=== PATIENT | female | born 1945 | race Caucasian/White ===

== ENCOUNTER 2024-03-27 00:16 | Inpatient (IN) | payer OTHER, MEDICARE ==
[2024-03-27] VITALS (15 sets, daily range): BP systolic 99–153; BP diastolic 60–91
[~2024-03-27] VITALS: Ht 162.6 cm; Wt 69.5 kg
[2024-03-27] MEDS ORDERED: Ibuprofen 600 MG Tab PO ONE (00:25)
[2024-03-27 00:56] LABS: BASOPHILS ABSOLUTE AUTO 0.02 K/mm3 (0.00-0.23); BASOPHILS PERCENT AUTO 0 % (0-2); EOSINOPHILS PERCENT AUTO 0 % (0-6); Hematocrit 40.8 % (33.0-51.0); Hemoglobin 13.6 g/dL (11.5-16.0); IMMATURE GRAN ABSOLUTE AUTO 0.07 K/mm3 (0.00-0.10); IMMATURE GRAN PERCENT AUTO 1 % (0-1); LYMPHOCYTES ABSOLUTE AUTO 0.72 K/mm3 (0.84-5.20); LYMPHOCYTES PERCENT AUTO 5 % (21-46); MONOCYTES PERCENT AUTO 3 % (4-13); Mean Corpuscular HGB Conc 33.3 g/dL (31.5-36.5); Mean Corpuscular Volume 90 fL (80-100); Mean Platelet Volume 9.3 fL (9.1-12.4); NEUTROPHILS ABSOLUTE AUTO 14.18 K/mm3 (1.96-9.15); NEUTROPHILS PERCENT AUTO 92 % (41-73); Platelet Count 232 K/mm3 (150-400); RDW Coefficient Variation 12.6 % (11.7-14.2); RDW Standard Deviation 41.8 fL (35.1-46.3); Red Blood Cell Count 4.54 M/mm3 (3.80-5.20); White Blood Cell Count 15.49 K/mm3 (4.00-11.30)
[2024-03-27] MEDS ORDERED: LORazepam 2 MG/ML 1ML Injection IV ONE ×2 (01:20→04:40)
[2024-03-27 01:21] LABS: Albumin/Globulin Ratio 1.1 (0.8-1.8); Bilirubin, Total 0.5 mg/dL (0.1-1.0); Bun/Creatinine Ratio 28.6 (12.0-20.0); Creatinine, Blood 0.56 mg/dL (0.40-1.00); Globulin, Blood 3.6 g/dL (2.2-4.0); Potassium, Blood 3.9 mmol/L (3.5-5.5); Total Protein, Blood 7.6 g/dL (6.4-8.2)
[2024-03-27] MEDS ORDERED: Acetaminophen 325 MG TABLET PO PRN (02:05)
[2024-03-27] MEDS ORDERED: Ondansetron 4 MG TAB PO PRN (02:05)
[2024-03-27] MEDS ORDERED: FLU VACC TS2024-25(6MOS UP)/PF 45 MCG/0.5 ML SYRINGE IM ONE (02:05)
[2024-03-27] MEDS ORDERED: Lactated Ringer's 1,000 ML IV SCH ×2 (03:00→13:35)
[2024-03-27 06:26] LABS: BASOPHILS ABSOLUTE AUTO 0.02 K/mm3 (0.00-0.23); BASOPHILS PERCENT AUTO 0 % (0-2); EOSINOPHILS PERCENT AUTO 0 % (0-6); Hematocrit 37.4 % (33.0-51.0); Hemoglobin 12.7 g/dL (11.5-16.0); IMMATURE GRAN ABSOLUTE AUTO 0.05 K/mm3 (0.00-0.10); IMMATURE GRAN PERCENT AUTO 0 % (0-1); LYMPHOCYTES ABSOLUTE AUTO 1.19 K/mm3 (0.84-5.20); LYMPHOCYTES PERCENT AUTO 10 % (21-46); MONOCYTES ABSOLUTE AUTO 0.63 K/mm3 (0.16-1.47); MONOCYTES PERCENT AUTO 5 % (4-13); Mean Corpuscular HGB 30.6 pg (26.0-34.0); Mean Corpuscular Volume 90 fL (80-100); Mean Platelet Volume 9.3 fL (9.1-12.4); NEUTROPHILS ABSOLUTE AUTO 9.95 K/mm3 (1.96-9.15); NEUTROPHILS PERCENT AUTO 84 % (41-73); Platelet Count 209 K/mm3 (150-400); RDW Coefficient Variation 12.6 % (11.7-14.2); RDW Standard Deviation 41.5 fL (35.1-46.3); Red Blood Cell Count 4.15 M/mm3 (3.80-5.20); White Blood Cell Count 11.84 K/mm3 (4.00-11.30)
[2024-03-27] MEDS ORDERED: FentaNYL Citrate 50 MCG/ML 2 ML Injection IV PRN (06:35)
[2024-03-27 06:43] LABS: Bun/Creatinine Ratio 25.8 (12.0-20.0); Calcium, Blood 8.8 mg/dL (8.5-10.1); Creatinine, Blood 0.62 mg/dL (0.40-1.00); Potassium, Blood 3.7 mmol/L (3.5-5.5)
--- NOTE | 2024-03-27 09:15 | NUR ---
ARRIVAL TO UNIT PT ARROVED TO UNIT VIA [facility]. A&0 x4. VSS. NPO AT THIS TIME. SLID TO BED, PT TOLERATED WELL. PT LOCALIZES PAIN TO L HIP S/P GLF @ HOME. NO BRUISING/ SKIN BREAKDOWN VISUALIZED. ANTICIPATED SURGERY LATER TODAY, BEDREST ORDERED AT THIS TIME. PUREWICK IN USE. PT ORIENTED TO UNIT, CALL LIGHT IN REACH, BED IN LOWEST POSITION.
[2024-03-27] MEDS ORDERED: OxyCODONE HCL 10 MG TABCR PO SCH (13:35)
[2024-03-27] MEDS ORDERED: Acetaminophen 500 MG Tab PO SCH (13:35)
[2024-03-27] MEDS ORDERED: Ropivacaine 0.5% HCl/Pf 123.125 MG,EPINEPHrine HCL 0.25 MG,Ketorolac Tromethamine 15 MG... INFIL SCH (13:35)
[2024-03-27] MEDS ORDERED: Chlorhexidine Mouth Care 15 ML UDC MT SCH (13:35)
[2024-03-27] MEDS ORDERED: Tranexamic Acid 100 ML IV SCH (13:35)
[2024-03-27] MEDS ORDERED: CeFAZolin Sodium 2,000 MG in NS 100 ML IV SCH (13:35)
[2024-03-27] MEDS ORDERED: propofoL 20 ML IV ONE (14:31)
[2024-03-27] MEDS ORDERED: FentaNYL Citrate 50 MCG/ML 2 ML Injection ONE ×2 (14:32→15:26)
--- NOTE | 2024-03-27 14:42 | NUR ---
History, Chart, Medications and Allergies reviewed before start of procedure. Pre-Op teaching done. Pt verbalizes understanding. Patient confirms NPO status and agrees with scheduled surgery. PT LEFT ALL BELONGINGS IN SURG FLOOR RM.
[2024-03-27] MEDS ORDERED: Dexamethasone Sod Phos 10 MG/ML 1ML VIAL ONE (15:25)
[2024-03-27] MEDS ORDERED: Ondansetron HCl 2 MG / ML 2ML Vial ONE (15:25)
[2024-03-27] MEDS ORDERED: Esmolol HCL 10 MG/ML 10ML VIAL ONE (15:25)
--- NOTE | 2024-03-27 17:20 | NUR ---
ARRIVAL TO UNIT PT ARRIVED TO UNIT FROM PACU VIA BED. PT ASLEEP, EASILY ROUSABLE. VSS. PT DENIES N/V. DRESSING TO L HIP C/D/I; POLAR PACK IN PLACE. NO STATED NEEDS AT THIS TIME. CALL LIGHT IN REACH, BED IN LOWEST POSITION.
--- NOTE | 2024-03-27 20:07 | NUR ---
SHIFT SUMMARY POD 0 L JELANI R/T FEMUR FX FROM GLF. NO ACUTE CHANGES THIS SHIFT. VSS. DENIES N/V, LIMITED PO INTAKE POST-OP. AWIAITING FIRST POST-OP VOID. PRINEO MESH c DERMABOND C/D/I ON L HIP. PT REPORTS PAIN TOLERABLE. AWAITING FIRST POST-OP AMB. PT RESTING IN BED, CALL LIGHT IN REACH, BED IN LOWEST POSITION, REPORT GIVEN TO TO WALLACE.
[2024-03-28] MEDS ORDERED: CeFAZolin Sodium 2,000 MG in NS 100 ML IV SCH
[2024-03-28 04:57] VITALS: BP 141/75
[2024-03-28 05:04] LABS: Hematocrit 34.3 % (33.0-51.0); Hemoglobin 11.4 g/dL (11.5-16.0); Mean Corpuscular HGB 30.6 pg (26.0-34.0); Mean Corpuscular HGB Conc 33.2 g/dL (31.5-36.5); Mean Corpuscular Volume 92 fL (80-100); Mean Platelet Volume 9.7 fL (9.1-12.4); Platelet Count 201 K/mm3 (150-400); RDW Coefficient Variation 12.8 % (11.7-14.2); RDW Standard Deviation 43.3 fL (35.1-46.3); Red Blood Cell Count 3.72 M/mm3 (3.80-5.20); White Blood Cell Count 13.79 K/mm3 (4.00-11.30)
--- NOTE | 2024-03-28 05:14 | NUR ---
SHIFT SUMMARY PT IS POD1 FOR L JELANI S/P L HIP FX. PT IS A/O X3-4, POOR HISTORIAN AND UNABLE TO REPORT MEDICAL HISTORY. BED ALARM ON FOR SAFETY. PT DOES FOLLOW COMMANDS. MEDICATED W/ TYLENOL FOR PAIN W/ GOOD RELIEF. PT HAS NOT WORKED W/ PT YET SINCE SURGERY, 1 ASST TO USE BEDPAN, HAS VOIDED MULTIPLE TIMES. PT ABLE TO REST MOST OF SHIFT. VSS. CALL LIGHT IN REACH.
[2024-03-28 06:03] LABS: Bun/Creatinine Ratio 17.6 (12.0-20.0); Calcium, Blood 8.1 mg/dL (8.5-10.1); Creatinine, Blood 0.68 mg/dL (0.40-1.00); Potassium, Blood 4.3 mmol/L (3.5-5.5)
[2024-03-28 07:07] VITALS: BP 140/75
[2024-03-28 14:14] VITALS: BP 139/83
--- NOTE | 2024-03-28 15:02 | NUR ---
"Spiritual Care Visit | Pt. Request Pt. is in bed and welcomed my visit. Pt. is pleasant and quickly reposnded to spiritual care. While a life review was facilitated, rapport is established. Pt. displayed evidence of a strong cynthia. Considered matters of cynthia and belief. Pt. verbalized an expectation that she would be here for a day or two before being discharged to a rehab facility. Prayed with pt. Pt. verbalized gratitude for the spiritual care visit."
[2024-03-28] MEDS ORDERED: HYDROcodone 5-APAP 325 TAB PO PRN (16:15)
[2024-03-28] MEDS ORDERED: Carvedilol 3.125 MG Tab PO SCH (17:00)
--- NOTE | 2024-03-28 17:20 | NUR ---
SHIFT SUMMARY POD 1 L JELANI R/T GLF. NO ACUTE CHANGES TODAY. TOLERATING DIET. PT REPORTS PAIN TOLERABLE c ORAL MEDICATIONS, POLAR PACK IN USE. PRINEO DRESSING c SUTURES C/D/I. AMBULATES STAND/PIVOT USING FWW c GB & 1 PERSON ASSIST. VOIDING. ANTICIPATED D/C SNF LATER THIS WEEK. CALL LIGHT IN REACH, BED IN LOWEST POSITION, WILL REPORT TO TO RN.
[2024-03-28 20:02] VITALS: BP 132/70
[2024-03-29 04:46] LABS: BASOPHILS ABSOLUTE AUTO 0.02 K/mm3 (0.00-0.23); BASOPHILS PERCENT AUTO 0 % (0-2); EOSINOPHILS ABSOLUTE AUTO 0.05 K/mm3 (0.00-0.68); EOSINOPHILS PERCENT AUTO 1 % (0-6); Hematocrit 30.6 % (33.0-51.0); Hemoglobin 10.2 g/dL (11.5-16.0); IMMATURE GRAN ABSOLUTE AUTO 0.04 K/mm3 (0.00-0.10); IMMATURE GRAN PERCENT AUTO 0 % (0-1); LYMPHOCYTES ABSOLUTE AUTO 1.27 K/mm3 (0.84-5.20); LYMPHOCYTES PERCENT AUTO 14 % (21-46); MONOCYTES PERCENT AUTO 8 % (4-13); Mean Corpuscular HGB 30.5 pg (26.0-34.0); Mean Corpuscular HGB Conc 33.3 g/dL (31.5-36.5); Mean Corpuscular Volume 92 fL (80-100); Mean Platelet Volume 9.7 fL (9.1-12.4); NEUTROPHILS ABSOLUTE AUTO 7.02 K/mm3 (1.96-9.15); NEUTROPHILS PERCENT AUTO 77 % (41-73); Platelet Count 188 K/mm3 (150-400); RDW Coefficient Variation 12.8 % (11.7-14.2); RDW Standard Deviation 42.4 fL (35.1-46.3); Red Blood Cell Count 3.34 M/mm3 (3.80-5.20)
[2024-03-29 05:02] VITALS: BP 148/85
[2024-03-29 05:07] LABS: Bun/Creatinine Ratio 21.6 (12.0-20.0); Calcium, Blood 7.9 mg/dL (8.5-10.1); Creatinine, Blood 0.6 mg/dL (0.40-1.00)
--- NOTE | 2024-03-29 07:28 | NUR ---
SHIFT SUMMARY NOC. PT POD 2 FOR LEFT TOTAL HIP. PT MEDICATED FOR PAIN WITH MINIMAL REPORTED RELIEF, ORDERS FOR 1-2 TABS Q 6 HRS. PT NOT FOLLOWING DIRECTIONS WITH HIP POSITIONING, EXTENSIVE EDUCATION PROVIDED THIS SHIFT. PT VOIDING AND TOLERATING PO INTAKE. BED IN LOWEST POSITION, CALL LIGHT IN REACH.
[2024-03-29 07:55] VITALS: BP 139/88
[2024-03-29] MEDS ORDERED: HYDROcodone 5-APAP 325 TAB PO PRN (08:10)
[2024-03-29 14:55] VITALS: BP 149/77
[2024-03-29] MEDS ORDERED: Artificial Tears Opth Oint 7 GM BOTHEYES PRN ×2 (16:35→16:52)
--- NOTE | 2024-03-29 16:41 | NUR ---
SHIFT SUMMARY PT IS POD#2 FROM L JELANI. PAIN HAS BEEN MANAGED WITH NORCO THIS SHIFT. PT IS A 1 ASSIST WHEN OOB. SHE IS TOLERATING PO. PLAN FOR DC TO SNF TOMORROW. PT USES HER CALL LIGHT APPROPRIATELY.
[2024-03-29] MEDS ORDERED: Peg 400/Hypromellose/Glycerin 15 DROP/ML BTL BOTHEYES PRN (16:50)
[2024-03-29 18:03] VITALS: BP 130/71
[2024-03-29 20:01] VITALS: BP 151/99
[2024-03-29] MEDS ORDERED: Artificial Tear Opth Oint 3.5 GM BOTHEYES PRN (20:45)
[2024-03-30 03:50] VITALS: BP 167/91
--- NOTE | 2024-03-30 04:55 | NUR ---
SHIFT SUMMARY NOC. PT POD 3 FOR LEFT TOTAL HIP. PT MEDICATED FOR PAIN WITH NORCO 2 TABS Q 4 HRS PRN WITH REPORTED RELIEF. PT AMBULATES TO BR WITH FWW, SBA AND GAIT BELT. PT VOIDING URINE AND TOLERATING PO. PT IMPULSIVE AND INCONSISTENTLY FOLLOWS DIRECTIONS. BED ALARM SET FOR SAFETY. CALL LIGHT IN REACH.
[2024-03-30 07:06] VITALS: BP 167/92
[2024-03-30] MEDS ORDERED: Carvedilol 6.25 MG Tab PO SCH (09:00)
--- NOTE | 2024-03-30 11:19 | NUR ---
Spiritual Care Attempted. Pt. had been resting when I entered her room, Pt. displayed evidence of somnolence, so this manufacturing process engineer agreed to come back at a better time. The Pt. verbalized gratitude for the spiritual care attempt.
[2024-03-30 11:35] LABS: SARS-Cov-2 (COVID-19) PCR, MMC NEGATIVE (NEGATIVE)
[2024-03-30 13:11] VITALS: BP 122/80
--- NOTE | 2024-03-30 14:04 | NUR ---
DISCHARGE PT DISCHARGED TO [facility] WITH W/C TRANSPORT AT APPROXIMATELY 1325. PT ALERT/ ORIENTED AND PLEASANT AT TIME OF DISCHARGE. PAIN MANAGED. PT REPORTED MILD NAUSEA AND WAS GIVEN ZOFRAN, PT STATED SHE DRANK MILK TODAY AND THAT USUALLY CAUSES HER STOMACH UPSET. REPORT GIVEN TO [facility]. VSS PRIOR TO DISCHARGE.
== END 2024-03-30 13:30 | DRG 522 ==
LOC: ER 00:16 → ERHOLD 02:02 → SURS 02:02
PROVIDERS: Emergency Medicine; Internal Medicine; Orthopaedic Surgery; Student in an Organized Health Care Education/Training Program; ADMIT Internal Medicine
PROC: 0SRB04A Replacement of Left Hip Joint with Ceramic on Polyethylene Synthetic Substitute, Uncemented, Open Approach (ICD-10-PCS; principal; 2024-03-27 15:30)
DX: S72.002A Fracture of unspecified part of neck of left femur, initial encounter for closed fracture (principal); D62 Acute posthemorrhagic anemia; W01.0XXA Fall on same level from slipping, tripping and stumbling without subsequent striking against object, initial encounter; M19.071 Primary osteoarthritis, right ankle and foot; S90.31XA Contusion of right foot, initial encounter; E66.9 Obesity, unspecified; R73.9 Hyperglycemia, unspecified; D72.829 Elevated white blood cell count, unspecified; I10 Essential (primary) hypertension; Z90.89 Acquired absence of other organs; Z98.890 Other specified postprocedural states
CPT/HCPCS: 36415; 72170; 73502; 73630; 80048; 80053; 82550; 82947; 85025; 85027; 96374; 97110; 97116; 97162; 97165; 97530; 97535; 99284-25; A6010; A9270; C1776; J0171; J0690; J0735; J1100; J1885; J2060; J2405; J2704; J2795; J3010; J7120; U0002